=== PATIENT | female | born 1970 | race Two or more races ===

== ENCOUNTER 2022-07-24 05:27 | Emergency (ER) | payer SELFPAY ==
[~2022-07-24] VITALS: Ht 149.9 cm; Wt 66.2 kg
[2022-07-24 06:05] VITALS: BP 165/107
[2022-07-24] MEDS ORDERED: BENZ-13 PO (06:25)
[2022-07-24] MEDS ORDERED: TYL2T PO (06:25)
[2022-07-24] MEDS ORDERED: AMOX-430 PO (06:25)
[2022-07-24] MEDS ORDERED: ERYT3.5O9 LEFTEYE (06:25)
[2022-07-24] MEDS ORDERED: ACETAMINOPHEN 325 MG TABLET ONE (06:28)
[2022-07-24] MEDS ORDERED: PENICILLIN G BENZATHINE 2.4 MMU/4 ML ML IM ONE ×2 (06:29→06:30)
[2022-07-24] MEDS ORDERED: ACETAMINOPHEN 325 MG TABLET PO ONE (06:30)
== END 2022-07-24 06:36 | disposition home or self-care (01) ==
LOC: ER 05:37
DX: J06.9 Acute upper respiratory infection, unspecified (principal); H10.89 Other conjunctivitis; I10 Essential (primary) hypertension; E11.9 Type 2 diabetes mellitus without complications; F17.200 Nicotine dependence, unspecified, uncomplicated; Z79.899 Other long term (current) drug therapy
CPT/HCPCS: 99283; 96372; J0558

== ENCOUNTER 2024-01-18 20:38 | Emergency (ER) | payer SELFPAY ==
[~2024-01-18] VITALS: Ht 149.9 cm; Wt 63.5 kg
[~2024-01-18 20:38] MED LIST: AMOX-430 PO; BENZ-13 PO; ERYT3.5O9 LEFTEYE; TYL2T PO
[2024-01-18 21:03] VITALS: TEMP 97.7
[2024-01-18] MEDS ORDERED: ONDANSETRON HCL/PF 4 MG/2 ML VIAL ONE (21:37)
[2024-01-18] MEDS ORDERED: MORPHINE SULFATE INJ 4 MG/ML DISP.SYRIN ONE ×2 (21:38→22:41)
[2024-01-18] MEDS: ONDANSETRON HCL/PF - ER 4 MG/2 ML VIAL IV ONE (21:46)
[2024-01-18] MEDS: MORPHINE SULFATE INJ 2 MG/ML DISP.SYRIN IV ONE (21:46)
[2024-01-18] MEDS ORDERED: LIDOCAINE 1% INJ 50 ML MDV IJ ONE (21:48)
[2024-01-18 21:53] LABS: BASOPHILS # (AUTO) 0.2 K/uL (0.0-0.2); BASOPHILS % (AUTO) 0.8 % (0.0-2.0); EOSINOPHILS # (AUTO) 0.5 K/uL (0.0-0.7); EOSINOPHILS % (AUTO) 2.8 % (0.0-6.0); HEMATOCRIT 42 % (33-45); HEMOGLOBIN 14.9 g/dL (11.5-14.8); LYMPHOCYTES # (AUTO) 2.5 K/uL (0.8-4.8); LYMPHOCYTES % (AUTO) 13.7 % (20.0-44.0); MEAN CORPUSCULAR HEMOGLOBIN 31 PG (26.0-33.0); MEAN CORPUSCULAR HGB CONC 35 g/dl (31.0-36.0); MEAN CORPUSCULAR VOLUME 89 fL (82-100); MONOCYTES # (AUTO) 1.4 K/uL (0.1-1.30); MONOCYTES % (AUTO) 7.9 % (2.0-12.0); NEUTROPHILS # (AUTO) 13.6 K/uL (1.8-8.9); NEUTROPHILS % (AUTO) 74.8 % (43.0-81.0); PLATELET COUNT (AUTO) 253 K/uL (150-450); RED BLOOD CELL COUNT(AUTO) 4.75 MIL/uL (4.0-5.2); RED CELL DISTRIBUTION WIDTH 13.9 % (11.5-15.0); WHITE BLOOD COUNT (AUTO) 18.2 K/uL (4.3-11.0)
[2024-01-18] MEDS: LIDOCAINE /MPF 1% VIAL 5 ML VIAL IJ ONE (21:55)
[2024-01-18 22:13] LABS: ALANINE AMINOTRANSFERASE 22 U/L (12-78); ALBUMIN 3.6 g/dL (3.4-5.0); ALKALINE PHOSPHATASE 92 U/L (46-116); ASPARTATE AMINOTRANSFERASE 8 U/L (15-37); BILIRUBIN,TOTAL 1.9 mg/dL (0.2-1.0); CALCIUM, SERUM 9.6 mg/dL (8.5-10.1); CARBON DIOXIDE 27 mmol/L (21-32); CHLORIDE 101 mmol/L (98-107); CREATININE 0.9 mg/dL (0.6-1.3); GLUCOSE 168 mg/dL (74-106); NT-PRO BNP 185 pg/mL (0-125); POTASSIUM 3.9 mmol/L (3.5-5.1); SODIUM SERUM 137 mmol/L (136-145); TOTAL PROTEIN, SERUM 7.7 g/dL (6.4-8.2); UREA NITROGEN, BLOOD 17 mg/dL (7-18)
[2024-01-18] MEDS ORDERED: KETOROLAC TROMETHAMINE INJ 30 MG/ML VIAL ONE (22:27)
[2024-01-18 22:40] LABS: ALCOHOL, BLOOD < 3 mg/dL (0-10)
[2024-01-18] MEDS: KETOROLAC TROMETHAMINE INJ 30 MG/ML VIAL IV ONE (22:40)
[2024-01-18] MEDS: MORPHINE SULFATE INJ 10 MG/ML DISP.SYRIN IV ONE (22:44)
[2024-01-18] MEDS ORDERED: CLINDAMYCIN 900 MG/6 ML VIAL ONE (22:59)
[2024-01-18] MEDS: CLINDAMYCIN PHOSPHATE IV 600 MG/4 ML VIAL IV ONE (23:03)
[2024-01-18] MEDS ORDERED: KETO10TA2 PO (23:09)
[2024-01-18] MEDS ORDERED: CEPH500C2 PO (23:09)
[2024-01-18] MEDS ORDERED: CLIN150C16 PO (23:09)
[2024-01-18 23:24] VITALS: BP 148/89; O2SAT 100
== END 2024-01-18 23:25 | disposition home or self-care (01) ==
LOC: ER 20:42
DX: N76.4 Abscess of vulva (principal); R07.2 Precordial pain; R00.2 Palpitations; I10 Essential (primary) hypertension; E11.9 Type 2 diabetes mellitus without complications; F17.200 Nicotine dependence, unspecified, uncomplicated; Z60.2 Problems related to living alone
CPT/HCPCS: 36415; 56405; 71045; 80053; 80320; 83880; 84484; 85025; 93005; 96374; 96375; 96376; 99285; A6407; J1885; J2270; J2405; J3490; G0480